=== PATIENT | male | born 1970 | race Two or more races ===

== ENCOUNTER 2017-10-31 18:48 | Emergency (ER) | payer SELFPAY ==
[~2017-10-31] VITALS: Ht 177.8 cm; Wt 122.5 kg
[2017-10-31 21:17] LABS: Basophils # (auto) 0.1 uL; Eosinophils # (auto) 0.6 uL; Eosinophils % (auto) 6.6 % (0.0-7.0); Hematocrit 45.1 % (41.0-53.0); Hemoglobin 15.3 g/dL (13.5-17.5); Lymphocytes # (auto) 2.6 uL; Mean Corpuscular Hemoglobin 30.3 pg (28.0-32.0); Mean Corpuscular Hgb Conc. 33.9 g/dL (32.0-36.0); Mean Corpuscular Volume 89.3 fL (80.0-100.0); Monocytes # (auto) 0.5 uL; Monocytes % (auto) 6.5 % (0.0-12.0); Neutrophils # (auto) 4.6 uL; Neutrophils % (auto) 54.9 % (37.0-80.0); Nucleated Red Blood Cells % 0.2 %; Platelet Count (auto) 288 10^3/uL (140-450); Red Blood Cells 5.05 10^6/uL (4.5-5.90); Red Cell Distribution Width 13.2 % (11.8-14.3); White Blood Cell 8.3 10^3/uL (4.4-10.8)
[2017-10-31 21:40] LABS: Albumin 3.8 g/dL (3.4-5.0); BUN/Creatinine Ratio 15.1; Bilirubin, Total 0.3 mg/dL (0.2-1.0); Calcium 8.7 mg/dL (8.5-10.1); Potassium 3.8 mmol/L (3.5-5.1); Total Protein 7.9 g/dL (6.4-8.2)
[2017-11-01] MEDS ORDERED: SODIUM CHLORIDE 0.9% 1,000 ML IV ONE
[2017-11-01] MEDS ORDERED: KETOROLAC TROMETH 30 MG/ML 1ML VIAL IV ONE
[2017-11-01 02:53] VITALS: BP 110/72
[2017-11-01 02:56] LABS: Urine Bacteria NONE SEEN /hpf (None Seen); Urine Blood 2+ /uL (Negative); Urine Budding Yeast OCCASIONAL /hpf (None Seen); Urine WBC 1 /hpf (0 - 3)
== END 2017-11-01 02:58 | disposition home or self-care (01) ==
LOC: ER 18:48
DX: K80.20 Calculus of gallbladder without cholecystitis without obstruction (principal)
CPT/HCPCS: 36415; 74176; 80053; 81001; 83690; 85025; 96374; 99285; J1885; J7030